=== PATIENT | female | born 1970 | race Caucasian/White ===

== ENCOUNTER → 2020-05-04 | Outpatient (CLI) | payer BC ==
[2020-05-04 13:52] VITALS: BP 178/84; PULSE 63; RESP 18; TEMP 98.5
[2020-05-05 09:39] VITALS: BMI 42.8
--- NOTE | 2020-05-14 12:01 | P.HPBAR ---
Bariatric H&P - History & Physicial H&P Date: 05/14/20 History & Physicial: Visit/CC: transfer of care Patient initial contact: Initial weight: Initial weight in pounds: Height: 6 ft Initial BMI: Last weight: Current weight: 143.335 kg Current weight in pounds: 316.00 Current BMI: 42.8 [place] body weight (based on NIH guidelines): 72.575 kg Excess body weight loss: The patient is a 50 year-old F who presents for Bariatric Assessment. Patient presents today for LAP-BAND adjustment. She had her band performed by outside surgeon. She's had some issues with dysphagia. Past Medical History Past Medical History: Atrial Fibrillation, GERD/Reflux, Sleep Apnea/CPAP/BIPAP History of Any Multi-Drug Resistant Organisms: None Reported Past Surgical History: Bariatric Surgery, Section, Pacemaker Additional Past Surgical History / Comment(s): loop monitor placed 2017 d/t afib; csection X2; lap band 2006 Past Anesthesia/Blood Transfusion Reactions: No Reported Reaction Type of Cardiac Device: Loop Device Placement Date:: 2017 Past Psychological History: No Psychological Hx Reported Smoking Status: Never smoker Past Alcohol Use History: None Reported Past Drug Use History: None Reported Surgical - Exam Vital Signs Temp Pulse Resp BP 98.5 F 63 18 178/84 05/04/20 13:43 05/04/20 13:43 05/04/20 13:43 05/04/20 13:43 - General well developed, well nourished, no distress - Eyes PERRL - ENT normal pinna - Neck no masses - Respiratory normal expansion - Cardiovascular Rhythm: regular - Abdomen Abdomen: soft, non tender Bariatric Assessment & Plan Plan: Patient LAP-BAND had 2 mL removed with bed. She's ill drink water without difficulty. She'll follow-up in 4 weeks. Bariatric Checklist Checklist: Plan: Checklist: EGD: 1. Hiatal hernia: 2. H. Pylori: HgbA1c: Vitamin D: Smoking: Primary care physician referral: Dr. Smart Psychiatry clearance: Cardiology clearance: Sleep study: Diet journal: VTE risk score: VTE risk level: Rehab needs at discharge:
== END | disposition home or self-care (01) ==
LOC: BARWHC3 12:56
PROVIDERS: ATTEND Surgery
DX: Z46.51 Encounter for fitting and adjustment of gastric lap band (principal)
CPT/HCPCS: 99212